=== PATIENT | female | born 1955 | race American Indian/Alaskan Native ===

== ENCOUNTER 2020-01-01 07:19 | Emergency (ER) | payer SELFPAY ==
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
[2020-01-01 10:43] LABS: Alanine Aminotransferase 27 units/L (7-56); Albumin 4.3 g/dL (3.9-5); BUN/Creatinine Ratio 13; Blood Urea Nitrogen 8 mg/dL (7-17); Calcium 9.5 mg/dL (8.4-10.2); Hemolysis Index 15
[2020-01-01 10:51] LABS: Amphetamine Screen,Urine PRESUMPTIVE NEGATIVE; Cannabinoid Screen,Urine PRESUMPTIVE NEGATIVE; Cocaine Screen,Urine PRESUMPTIVE NEGATIVE; Methadone Screen,Urine PRESUMPTIVE NEGATIVE; Opiate Screen,Urine PRESUMPTIVE NEGATIVE
[2020-01-01 10:53] LABS: Basophils # (Auto) 0.1 K/mm3 (0.0-0.1); Eosinophils # (Auto) 0.1 K/mm3 (0.0-0.4); Hematocrit 36.4 % (30.3-42.9); Hemoglobin 12.2 gm/dl (10.1-14.3); Lymphocytes # (Auto) 1.2 K/mm3 (1.2-5.4); Lymphocytes % (Auto) 21.8 % (13.4-35.0); Mean Corpuscular HGB Conc 33 % (30-34); Mean Corpuscular Volume 91 fl (79-97); Monocytes # (Auto) 0.4 K/mm3 (0.0-0.8); Platelet Count 238 K/mm3 (140-440); Red Blood Count 4.02 M/mm3 (3.65-5.03); Red Cell Distribution Width 13.4 % (13.2-15.2)
[2020-01-01 10:55] LABS: Bilirubin,Urine NEG (Negative); Blood,Urine NEG (Negative); Color,Urine Yellow (Yellow); Mucus,Urine 3+ /HPF; Protein,Urine <15 mg/dL mg/dL (Negative)
[2020-01-01 10:59] LABS: Bilirubin,Direct < 0.2 mg/dL (0-0.2)
[2020-01-01 11:17] LABS: Benzodiazepines Screen,Urine PRESUMPTIVE POSITIVE
--- NOTE | 2020-01-01 11:27 | Cat Scan Report ---
CT head/brain wo con INDICATION / CLINICAL INFORMATION: 64 years Female; AMS. TECHNIQUE: Routine CT head without contrast. All CT scans at this location are performed using CT dos e reduction for ALARA by means of automated exposure control. COMPARISON: None. FINDINGS: BRAIN / INTRACRANIAL CONTENTS: Prior craniotomy site seen in the left parietal temporal region. A por tion of the anterior left temporal lobe is been resected. Residual cyst in this region might be a con sideration. Please clinically correlate. Comparison with prior exam would certainly be helpful if ayana ilable. Otherwise, no acute hemorrhage, mass effect, midline shift, hydrocephalus, or acute, large territori al infarct. No chronic infarct or atrophy appreciated. No significant white matter abnormality. CRANIOCERVICAL JUNCTION: No significant abnormality. ORBITS: No significant abnormality of visualized orbits. SINUSES / MASTOIDS: There is mucosal thickening seen in the left mastoid region, as well as partial o pacification. No coalescence of air cells appreciated. ADDITIONAL FINDINGS: None. IMPRESSION: 1. Postoperative changes as described above. 2. Otherwise, no focal intra-axial mass, hemorrhage, hydrocephalus, or acute, large territorial infar ct. Signer Name: Lm Lehman MD, III Signed: 01/01/2020 11:23 AM Workstation Name: [id number]
--- NOTE | 2020-01-01 13:43 | Cat Scan Report ---
CT ABDOMEN AND PELVIS WITH CONTRAST INDICATION: Unspecified abdominal pain. COMPARISON: No relevant prior imaging study available. TECHNIQUE: Axial, coronal and sagittal CT imaging of the abdomen and pelvis was performed after inje ction of 100 cc Omnipaque [address] scans at this location are performed using CT dose re duction for ALARA by means of automated exposure control. FINDINGS: LOWER CHEST: No significant abnormality. LIVER: A tiny hypodensity located superiorly along the anterior segment of the right hepatic lobe is too small to completely characterize, but likely represents a cyst. A 1.1 cm hypodensity located emelia g the posterior segment of the right hepatic lobe on image 54 of series 2 may represent a cyst or hem angioma. No additional significant abnormality. BILIARY: No significant abnormality. PANCREAS: No significant abnormality. SPLEEN: No significant abnormality. ADRENALS: Bilateral adrenal nodules measure 1.4 cm on the right and 1.6 cm on the left. KIDNEYS AND URETERS: No significant abnormality. GI TRACT: No significant abnormality of the stomach, small bowel or colon. Unremarkable appendix. PERITONEUM: No free fluid. No free air. No fluid collection. LYMPH NODES: No significant adenopathy. VASCULATURE: No significant abnormality. URINARY BLADDER: No significant abnormality. REPRODUCTIVE ORGANS: There is a septated right adnexal/ovarian cyst measuring 5.8 x 5.6 cm on image 1 50 of series 2. No additional significant abnormality. The uterus is surgically absent. ADDITIONAL FINDINGS: None. SKELETAL SYSTEM: No acute abnormality. Degenerative changes are seen throughout the spine. IMPRESSION: 1. No acute abnormality of the abdomen or pelvis. 2. Right ovarian/adnexal cyst as above. A nonemergent pelvic ultrasound is recommended for further ev aluation. 3. Bilateral adrenal nodules may represent adenomas. Signer Name: Leobardo Gomez MD Signed: 01/01/2020 1:39 PM Workstation Name: [id number]
[2020-01-01 15:49] VITALS: BP 136/75
== END 2020-01-01 15:50 | disposition home or self-care (01) ==
LOC: ED 07:19
DX: R10.9 Unspecified abdominal pain (principal); R41.82 Altered mental status, unspecified
CPT/HCPCS: 36415; 70450; 74177; 80048; 80076; 80307; 81001; 83690; 85025; 99284; Q9967; 80320; G0480

== ENCOUNTER 2020-01-01 16:43 | Emergency (ER) | payer SELFPAY ==
[2020-01-01 17:52] VITALS: BP 172/84
== END 2020-01-01 21:10 | disposition left against medical advice (07) ==
LOC: ED 16:43
DX: R10.9 Unspecified abdominal pain (principal); Z53.21 Procedure and treatment not carried out due to patient leaving prior to being seen by health care provider